=== PATIENT | female | born 1975 | race Caucasian/White ===

== ENCOUNTER 2021-11-08 21:48 | Emergency (ER) | payer SELFPAY ==
[2021-11-08] MEDS ORDERED: Penicillin V Potassium 500 MG Tab PO STA (22:24)
--- NOTE | 2021-11-08 22:30 | EDM.PDOC ---
ED HPI GENERAL MEDICAL PROBLEM - General Chief Complaint: ENT Problem Stated Complaint: TOOTH PAIN Time Seen by Provider: 11/08/21 22:03 Source of Information: Reports: Patient, Family () History Limitations: Reports: No Limitations - History of Present Illness INITIAL COMMENTS - FREE TEXT/NARRATIVE: Mrs. Estrada is a pleasant 46-year-old woman who now presents the ED stating that she has been experiencing lower left dental pain on and off for the past 3 weeks, after a filling fell out of one of her molars about 1 month ago. She has been taking acetaminophen and applying Orajel. She states that she feels feverish with chills, although she has not noticed any oral drainage. She has not yet been seen by a dentist. At triage, the patient was found to be hemodynamically stable, afebrile, saturating 100% on room air. She appears to be uncomfortable, although in no acute distress. Other than the dental issue, the patient denies having a recent fever, chills, sore throat, ear pain, nasal or sinus congestion, cough, dyspnea, chest pain, palpitations, nausea, vomiting, constipation, diarrhea, abdominal pain, urinary symptoms, recent weight gain or weight loss, recent bloody bowel movements or black bowel movements, recent joint aches, headaches, or rashes. The patient's PCP is Eileen Yanez, in [place]. She has received 1 COVID vaccination, although no influenza vaccination this season. - Related Data Allergies Allergy/AdvReac Type Severity Reaction Status Date / Time No Known Allergies Allergy Verified 11/08/21 22:47 Home Meds: Home Meds Penicillin V Potassium 1 tab PO Q6HR #40 tab 11/08/21 [Rx] Past Medical History HEENT History: Reports: Impaired Vision Cardiovascular History: Reports: High Cholesterol Psychiatric History: Reports: Addiction (opioids) Endocrine/Metabolic History: Reports: Diabetes, Type II, Obesity/BMI 30+ - Past Surgical History HEENT Surgical History: Reports: Adenoidectomy, Oral Surgery (dental extractions), Tonsillectomy GI Surgical History: Reports: Appendectomy, Cholecystectomy (2004) Female Surgical History: Reports: D&C (x 1), Hysterectomy (complete, 2006), Other (See Below) (Bladder suspension) Musculoskeletal Surgical History: Reports: Carpal Tunnel (bilateral) Social & Family History - Tobacco Use Tobacco Use Status *Q: Current Every Day Tobacco User Years of Tobacco use: 32 Packs/Tins Daily: 1 Tobacco Use Comment: Started smoking 1988 - Caffeine Use Caffeine Use: Reports: None - Alcohol Use Alcohol Use History: No - Recreational Drug Use Recreational Drug Use: Yes Drug Use in Last 12 Months: Yes Recreational Drug Type: Reports: Marijuana/Hashish (last smoked 1993), Other (see below) (On suboxone 11/18/2020 - 03/17/2021) - Living Situation & Occupation Living situation: Reports: , with Spouse Occupation: Employed (Construction) ED ROS ENT - Review of Systems Review Of Systems: Comprehensive ROS is negative, except as noted in HPI. ED EXAM, ENT - Physical Exam Exam: See Below Exam Limited By: No Limitations General Appearance: Alert, WD/WN, Mild Distress (appears uncomfortable) Eye Exam: Bilateral Eye: EOMI, Normal Inspection Ears: Normal External Exam, Normal Canal, Hearing Grossly Normal, Normal TMs Nose: Normal Inspection, Normal Mucousa, No Blood Mouth/Throat: Normal Gums, Normal Lips, Normal Oropharynx, Other (Tooth #17 absent. Tooth #18 with an amalgam filling. Tooth #19 (the tooth of concern) with significant decay to the articular surface. No surrounding gingival swelling or pointing.) Head: Atraumatic, Normocephalic Neck: Normal Inspection, Supple, Non-Tender, Full Range of Motion. No: Lymphadenopathy (L), Lymphadenopathy (R) Course - Vital Signs Last Recorded V/S: Last Vital Signs Temp 35.9 C L 11/08/21 22:03 Pulse 85 11/08/21 22:03 Resp 18 11/08/21 22:03 BP 111/82 11/08/21 22:03 Pulse Ox 100 11/08/21 22:03 - Orders/Labs/Meds Meds: Medications Discontinued Medications Generic Name Dose Route Start Last Admin Trade Name Freq PRN Reason Stop Dose Admin Penicillin V Potassium 500 mg 11/08/21 22:24 11/08/21 22:29 Penicillin V Potassium 500 Mg Tab PO 11/08/21 22:25 500 mg ONETIME STA Administration - Re-Assessments/Exams Free Text/Narrative Re-Assessment/Exam: 11/08/21 22:25 As above, tooth #19 appears to have significant decay on its articular surface. I think it is reasonable to start her on an antibiotic, therefore she will be started on oral penicillin here in the ED, and I will submit a prescription for the same to the [facility] pharmacy, that she can tack picker in the morning. I offered to perform an inferior alveolar nerve block, but she declined. I am recommending that she continue to take [id number] ibuprofen, although she could switch to naproxen, for less frequent dosing. She can also use topical Orajel. The patient will be provided with a list of local dentists to follow-up. The [place] [employer] indicates that the patient was on Suboxone from 11/18/2020 through 03/17/2021. When asked about drug use, the patient denied prior opiate use. Because of her history of opiate use, I am reluctant to prescribe an opiate, therefore it was not offered. Departure - Departure Time of Disposition: 22:27 Disposition: Home, Self-Care 01 Condition: Good Clinical Impression: Dentalgia, Dental decay - Discharge Information *PRESCRIPTION DRUG MONITORING PROGRAM REVIEWED*: Yes *COPY OF PRESCRIPTION DRUG MONITORING REPORT IN PATIENT IMAN: No Prescriptions: Penicillin V Potassium 1 tab PO Q6HR #40 tab Instructions: Dental Pain, [id number] Referrals: Eileen Yanez MD [Ordering Only Provider] - Forms: ED Department Discharge Additional Instructions: You were seen in the emergency room for on and off lower left dental pain for the past 3 weeks, after a filling fell out of that tooth about a month ago. On examination, your tooth #19 has a significant decay. An offer of a dental block, to numb the tooth, was made, but declined. You have been started on the antibiotic penicillin, and a prescription for penicillin has been sent to the [facility], located just south and across [address] from [facility]. Take 1 tablet of penicillin every 6 hours, as prescribed. Finish the entire prescription unless told otherwise by dentist. We recommend that you take fytp-mkf-wwmhyii ibuprofen, 3 tablets (600 mg), with food, up to every 8 hours, as needed for pain. Alternatively, you could take 2 tablets of [id number] naproxen (Aleve), with food, up to every 12 hours, as needed for pain. Do not take both Aleve and naproxen. You may continue to use topical Orajel. A list of local dentists has been provided to you. It is imperative that you follow-up with a dentist within the next 10 days. If any other problems, please do not hesitate to return to the ER. Sepsis Event Note (ED) - Evaluation Sepsis Screening Result: No Definite Risk
== END 2021-11-08 22:50 | disposition home or self-care (01) ==
LOC: JD.ED 21:48 → EDBD 21:48 → JD.ED 22:50
DX: K02.9 Dental caries, unspecified (principal); E11.9 Type 2 diabetes mellitus without complications; E66.9 Obesity, unspecified; Z68.37 Body mass index [BMI] 37.0-37.9, adult; Z72.0 Tobacco use
CPT/HCPCS: 99282; A9270